=== PATIENT | female | born 1960 | race African-American/Black ===

== ENCOUNTER 2017-09-15 16:18 | Emergency (ER) | payer MEDICARE, MEDICAID ==
[~2017-09-15] VITALS: Ht 167.6 cm; Wt 124.7 kg
[~2017-09-15 16:18] MED LIST: IBUPROFEN600 MG ORAL; NKM; NORCO 5-325 TA1 EACH ORAL
[2017-09-15 16:31] VITALS: BP 162/99
[2017-09-15] MEDS ORDERED: GABAPENTIN300 MG ORAL (17:06)
--- NOTE | 2017-09-15 17:07 | Emergency Room Report ---
History of Present Illness General Chief Complaint: Pain Source: Patient Present Illness HPI 57 y/o female c/o chronic pain and for medication refill. Patient states she has chronic back pain with sciatica and is requesting narcotic medications and gabapentin. Patient states she sees PCP and pain mgmt but ran out of her narcotic medication and requesting a refill. States no acute changes to her symptoms and will not be able to get to her PCP until September. Denies any lower extremity weakness, incontinence, foot drop, saddle anesthesia, numbness, or paralysis. Allergies: Coded Allergies: PENICILLINS (Verified Allergy, Unknown, 08/10/15) Patient History Past Medical History: see triage record Reviewed Nursing Documentation: PMH: Agreed, PSxH: Agreed Nursing Documentation-PMH Past Medical History: No Stated History Review of Systems All Other Systems: negative except mentioned in HPI Physical Exam Vital Signs Date Time Temp Pulse Resp B/P (MAP) Pulse Ox O2 Delivery O2 Flow Rate FiO2 09/15/17 16:31 98.2 98 18 162/99 95 Room Air Sp02 EP Interpretation: reviewed, normal General Appearance: no apparent distress, alert, GCS 15, non-toxic Head: normocephalic, atraumatic Eyes: bilateral eye normal inspection, bilateral eye PERRL ENT: normal ENT inspection Respiratory: chest non-tender, lungs clear, normal breath sounds, speaking full sentences Cardiovascular #1: regular rate, rhythm, no edema Musculoskeletal: back normal, gait/station normal, normal range of motion, non- tender Neurologic: alert, oriented x3, responsive, motor strength/tone normal, sensory intact, speech normal Skin: normal color, no rash, warm/dry, well hydrated Medical Decision Making PA Attestation Dr. Kapoor is my supervising physician with whom patient management has been discussed with. Diagnostic Impression: Primary Impression: Chronic pain disorder Additional Impression: Medication refill ER Course Pt. presents to the ED c/o chronic back pain med refill Ddx considered but are not limited to sciatica, spinal stenosis, chronic pain syndrome, opioid abuse Vital signs: are WNL, pt. is afebrile H&PE are most consistent with chronic pain syndrome. Patient has a cures report that shows she has aberrant behavior. Patient was advised to stop this behavior and informed her of her cures report. Patient states she will f/u with PCP on Sunday. ORDERS: none required at this time, the diagnosis is clinical ED INTERVENTIONS: none required at this time. DISCHARGE: At this time pt. is stable for d/c to home. Will provide printed patient care instructions, and any necessary prescriptions. Care plan and follow up instructions have been discussed with the patient prior to discharge. Last Vital Signs Date Time Temp Pulse Resp B/P (MAP) Pulse Ox O2 Delivery O2 Flow Rate FiO2 09/15/17 16:31 98.2 98 18 162/99 95 Room Air Disposition: HOME, SELF-CARE Condition: Stable Scripts Gabapentin* (GABAPENTIN*) 300 Mg Capsule 300 MG ORAL THREE TIMES A DAY for 10 Days, #30 CAP 0 Refills Prov: ERASMO TREVINO 09/15/17 Patient Instructions: Chronic Pain Additional Instructions: Patient advised to follow up with PCP for evaluation and management of her chronic pain. All future narcotic refills should be from your PCP or specialists. Patient advised to return if symptoms worsen or change. ERASMO TREVINO Sep 15, 2017 17:07
[2017-09-15] MEDS ORDERED: HYDROcodone/Acetamin 10/325 tab ORAL ONE (17:15)
[2017-09-15 17:25] VITALS: BP 162/99
== END 2017-09-15 17:25 | disposition home or self-care (01) ==
LOC: EMR 16:50
DX: G89.29 Other chronic pain (principal); M54.9 Dorsalgia, unspecified; Z76.0 Encounter for issue of repeat prescription
CPT/HCPCS: 99283